=== PATIENT | female | born 1960 | race Caucasian/White ===

== ENCOUNTER → 2021-04-27 15:27 | Outpatient (BNVA) | payer BC, SELFPAY | PROVIDERS: PCP Internal Medicine; Visit Provider Hospitalist ==

== ENCOUNTER 2024-06-06 08:33 | Outpatient (AMB) | payer BC, SELFPAY ==
--- NOTE | 2024-06-06 08:52 | A.OFFPC_ITS ---
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 Has been out of blood pressure medication due to [facility] not filling them Marker Hand Required: No Allergies erythromycin base Allergy (Unknown, Verified 06/06/24 09:03) Unknown Medication List - Last Reconciled 06/06/24 by Vianney Szymanski PA-C albuterol sulfate 90 mcg/actuation inhalation ashwagandha root extract PO atorvastatin 10 mg PO DAILY biotin (Hair, Skin and Nails (biotin)) . 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 She is transferring from [facility]. She has a significant past medical history of hypertension, hyperlipidemia, prediabetes, seasonal allergies and asthma. -Trying to be healthier with acupuncture , red light therapy, and salt rooms. Trying to eat healthier. Not exercising. Trying to get up healthy boundaries with family members. CV: Blood pressure today in the office is elevated at 158/94. She is on irbesartan 300 mg daily and chlorthalidone 25 mg daily. Cholesterol is controlled with atorvastatin 10 mg. She states that she has been struggling with [facility] to refill her medications and schedule appointments so she has been out of her blood pressure medications for the last 3 weeks. She still has some atorvastatin at home. Two years ago she did have an echo and Holter which were overall reassuring other than intermittent PVCs and some bradycardia. She states that she purchased an EKG reader and has been monitoring her rhythm strips at home. She has been asymptomatic but has noticed that sometimes she is bradycardic in the 50s. She says when she saw Cardiology last year they told her that she did not need to follow up unless she develops any symptoms or anything changes. She just gets worried because she has a family history of AFib. PULM: Reports an asthma exacerbation in the last 2 days. She states that she [place] [employer] [place] and was sitting on hay which triggers her and then was sitting by a fire which also triggers her asthma. She is on Symbicort and montelukast. Uses albuterol as needed and recently has been using albuterol every 8 hours. Endo: Last A1c was 6.1. In the past she was on Trulicity. Tolerated this well and was able to lose weight. States that she was off of this because her insurance did not cover it. Derm: Requests a referral to Dermatology today. Her daughter was recently diagnosed with melanoma. She also reports a small, flesh-colored lump on her left lower leg. She states it has been there for years but recently feels a bit more rough and uncomfortable. She also has a mole on her back which she has a hard time seeing but it looks like it has changed colors. Mammogram: Up-to-date at [facility] Pap: Overdue Colonoscopy: Believes that she is due this year Bone density: Overdue [facility] Medical History (Updated 06/06/24 @ 10:06 by Vianney Szymanski PA-C) Prediabetes Obesity, Class II, BMI 35-39.9 Kidney stone HTN (hypertension) Hyperlipidemia Elevated glucose Bradycardia Anxiety and depression Anemia Allergy to nuts Allergic rhinitis Allergies Nasal polyps Asthma Surgical History (Updated 06/06/24 @ 09:17 by Heather Oviedo CMA) Hx of total knee replacement Hx of sinus surgery Family History (Updated 06/06/24 @ 09:21 by Heather Oviedo CMA) Father CAD (coronary artery disease) Alcoholism Hyperlipidemia HTN (hypertension) Kidney disease Liver disease Other Substance use Social History (Updated 04/27/21 @ 15:41 by PRASHANT Robles) Housing: House Patient Tobacco Use Status: Never used Tobacco e-Cigarette/Vaping Use: Never Used service: No Current occupational status: employed 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 1. Little interest or pleasure in doing things: not at all 2. Feeling down, depressed, or hopeless: not at all 3. Trouble falling or staying asleep, or sleeping too much: several days 4. Feeling tired or having little energy: not at all 5. Poor appetite or overeating: not at all 6. Feeling bad about yourself - or that you are a failure or have let yourself or your family down: not at all 7. Trouble concentrating on things, such as reading the newspaper or watching television: not at all 8. Moving or speaking so slowly that other people could have noticed. Or the opposite - being so fidgety or restless that you have been moving around a lot more than usual: not at all 9. Thoughts that you would be better off or of hurting yourself in some way: not at all Total score: 1 Depression Screening Interpretation: Negative Depression Screening Done: Yes 52264 - PHQ-9 Billing: Yes Source: Developed by Drs. Tony Goldstein, Estela Falk, Theo Levine and colleagues, with an educational nazia from [employer]. Thrive Questionnaire Date Thrive assessed: 06/06/24 I am a: Patient What is your living situation today?: I have a steady place to live Within the past 12 months, did the food you bought not last and you didn't have the money to get more?: Never true Within the past 12 months, did you worry whether your food would run out before you got money to buy more?: Never true Do you have trouble paying for medicines?: No Do you have trouble getting transportation to medical appointments?: No Do you have trouble paying your heating and electricity bill?: No Do you have trouble taking care of your child, family member or friend?: No Do you have trouble with day-to-day activities such as bathing, preparing meals, shopping, managing finances, etc.?: No Are you currently unemployed and looking for a job?: No Are you interested in more education?: No Please select the resources that you would like help with: None Currently or been in a relationship where the following occur: No concerns reported THRIVE Score: 0 AUDIT C Alcohol Use Questionnaire (AUDIT-C) 1. How often do you have a drink containing alcohol?: Monthly or less 2. How many drinks containing alcohol do you have on a typical day when you are drinking?: 1 or 2 3. How often do you have six or more drinks on one occasion?: Never Total Score: 1 DEVIN-7 AMB Questionnaire DEVIN-7 Date DEVIN - 7 assessed: 06/06/24 Feeling nervous, anxious, or on edge: 1 = Several days Not being able to stop or control worryin = Several days Worrying too much about different things: 1 = Several days Trouble relaxin = Several days Being so restless that it is hard to sit still: 0 = Not at all Becoming easily annoyed or irritable: 0 = Not at all Feeling afraid as if something awful might happen: 0 = Not at all Total DEVIN-7 score (0-4 normal; 5-9 mild; 10-14 moderate; 15-21 severe): 4 Source: Developed by Drs. Tony Goldstein, Estela Falk, Theo Levine and colleagues, with an educational nazia from [employer]. DEVIN-7 Assessment Billing DEVIN-7 Assessment Tool: DEVIN-7 Assessment [id number] Physical exam (Primary Care) Vital Signs: Last Vital Signs BP 158/94 H 06/06/24 09:06 BMI result Body Mass Index 40.8 Tobacco/Smoking Status: Tobacco use Status Tobacco use date assessed 06/06/24 06/06/24 09:00 Patient Tobacco Use Status Never used Tobacco 06/06/24 08:52 e-Cigarette/Vaping Use Never Used 06/06/24 09:00 PHQ-9: PHQ-9 Score PHQ-9: Total score 1 06/06/24 08:52 Depression Screening Interpretation: Negative Thrive Assessment: Date of Thrive Assessment Date Thrive assessed 05/30/24 06/06/24 08:52 Currently or been in a relationship where the following occur: No concerns reported Const Orientation/consciousness: patient oriented x3 HENMT Other: TMs dome-shaped a small air-fluid levels. No erythema. Nasal mucosa pale and boggy. Maxillary sinus is slightly tender to palpation. Ears: hearing grossly normal bilaterally Neck Thyroid: Thyroid normal Lymphatic: no lymphadenopathy noted Resp Effort & Inspection: normal respiratory effort and able to speak in complete sentences Auscultation: wheezes scattered wheezes Cardio Rate: regular rate Rhythm: regular rhythm Heart sounds: S1 normal heart sound present and S2 normal heart sound present GI Inspection: Yes normal to inspection Palpation (GI): Soft to palpation and Other GI palpation findings present (nontender, no cva tenderness) Auscultation: normoactive bowel sounds Rectal Exam - Female: deferred Skin Other: There is a small, approximately 3 mm x 3 mm flesh-colored raised lesion noted on the left posterior lower leg. There is a circular, hyperpigmented, flat, 5 mm x 5 mm lesion noted on the mid back with varying shades of hyperpigmentation. Neuro General: patient oriented x3, gait normal and no focal motor deficits Assessment and Plan Assessment & Plan (1) Asthma: Code(s): J45.909 - Unspecified asthma, uncomplicated Qualifiers: Asthma severity: moderate Asthma persistence: persistent Asthma complication type: with acute exacerbation Qualified Code(s): J45.41 - Moderate persistent asthma with (acute) exacerbation Plan: We will treat with a prednisone taper. Discussed risks and benefits and adverse effects of this medication. Warning signs of a an asthma exacerbation that would require emergent medical treatment were discussed. (2) Bradycardia: Code(s): R00.1 - Bradycardia, unspecified Plan: Heart rate WNL today. Monitors this at home with her watch and EKG reader. (3) Hyperlipidemia: Code(s): E78.5 - Hyperlipidemia, unspecified Plan: Continue atorvastatin. We will check lipids and LFTs today. (4) HTN (hypertension): Code(s): I10 - Essential (primary) hypertension Plan: Elevated above goal. Refilled blood pressure medications. Follow up in 1 month to have blood pressure rechecked. (5) Prediabetes: Code(s): R73.03 - Prediabetes Plan: A1c ordered today. (6) Skin lesion of left lower extremity: Code(s): L98.9 - Disorder of the skin and subcutaneous tissue, unspecified Plan: Referral to [facility] for the leg and back lesion. Referral was also printed and given to patient. She will let me know if she does not get an appointment in the next couple of weeks. Bone density ordered Referral to performance [facility]. Orders: Orders Comprehensive [place]. Panel Fast Today E78.5 - Hyperlipidemia, unspecified, I10 - Essential (primary) hypertension, J45.909 - Unspecified asthma, uncomplicated, R00.1 - Bradycardia, unspecified, R73.03 - Prediabetes XR DEXA axial skeleton Today Z13.820 - Encounter for screening for osteoporosis Complete Blood Count Auto Diff Today E78.5 - Hyperlipidemia, unspecified, I10 - Essential (primary) hypertension, J45.909 - Unspecified asthma, uncomplicated, R00.1 - Bradycardia, unspecified, R73.03 - Prediabetes B Type Natriuretic Peptide Today E78.5 - Hyperlipidemia, unspecified, I10 - Essential (primary) hypertension, J45.909 - Unspecified asthma, uncomplicated, R00.1 - Bradycardia, unspecified, R73.03 - Prediabetes Lipid Panel Today E78.5 - Hyperlipidemia, unspecified, I10 - Essential (primary) hypertension, J45.909 - Unspecified asthma, uncomplicated, R00.1 - Bradycardia, unspecified, R73.03 - Prediabetes TSH reflex Free T4 Today E78.5 - Hyperlipidemia, unspecified, I10 - Essential (primary) hypertension, J45.909 - Unspecified asthma, uncomplicated, R00.1 - Bradycardia, unspecified, R73.03 - Prediabetes Hemoglobin A1c Today E78.5 - Hyperlipidemia, unspecified, I10 - Essential (primary) hypertension, J45.909 - Unspecified asthma, uncomplicated, R00.1 - Bradycardia, unspecified, R73.03 - Prediabetes Vitamin B12 and Folate Today E78.5 - Hyperlipidemia, unspecified, I10 - Essential (primary) hypertension, J45.909 - Unspecified asthma, uncomplicated, R00.1 - Bradycardia, unspecified, R73.03 - Prediabetes 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 Z01.419 - Encounter for gynecological examination (general) (routine) without abnormal findings Open Access Screening Colonoscopy Referral Z12.11 - Encounter for screening for malignant neoplasm of colon, Z12.12 - Encounter for screening for malignant neoplasm of rectum Dermatology Referral L98.9 - Disorder of the skin and subcutaneous tissue, unspecified Medications: New montelukast 10 mg PO DAILY 90 tabs 3RF chlorthalidone 25 mg PO DAILY 90 tabs 3RF prednisone take 3 tab po x 3 days, take 2 tab po x 3 days, 1 tab po x 3 days 18 tabs 0RF irbesartan 300 mg PO DAILY 90 tabs 3RF atorvastatin 10 mg PO DAILY 90 tabs 3RF Changed From albuterol sulfate 90 mcg/actuation inhalation To albuterol sulfate 90 mcg/actuation 2 puffs inhalation Q6-8H 8.5 grams 3RF Refilled Symbicort 160-4.5 mcg/actuation (budesonide-formoterol) 2 puffs inhalation BID 30 days 10.2 grams 11RF NS J44.9 - Chronic obstructive pulmonary disease, unspecified Coding Level of Care Code Est Pt Level 4 (84121) Complex EM visit Add On G2211 Diagnoses Moderate persistent asthma with acute exacerbation J45.41 Asthma severity: moderate Asthma persistence: persistent Asthma complication type: with acute exacerbation Bradycardia R00.1 Hyperlipidemia E78.5 HTN (hypertension) I10 Prediabetes R73.03 Skin lesion of left lower extremity L98.9 Additional Codes DEVIN-7 Assessment Billing - DEVIN-7 Assessment Tool: DEVIN-7 Assessment [id number] ([id number])
[2024-06-06 09:06] VITALS: BP 158/94; BMI 40.8
[2024-06-06 09:22] VITALS: BP 148/96
== END 2024-06-06 09:57 | disposition home or self-care (01) ==
PROVIDERS: PCP Internal Medicine; Visit Provider Physician Assistant
DX: J45.41 Moderate persistent asthma with (acute) exacerbation (principal); R00.1 Bradycardia, unspecified; E78.5 Hyperlipidemia, unspecified; I10 Essential (primary) hypertension; R73.03 Prediabetes; L98.9 Disorder of the skin and subcutaneous tissue, unspecified

== ENCOUNTER → 2024-06-06 08:33 | Outpatient (BNVA) | payer BC, SELFPAY | PROVIDERS: PCP Internal Medicine; Visit Provider Physician Assistant | DX: J45.41 Moderate persistent asthma with (acute) exacerbation (principal); R00.1 Bradycardia, unspecified; E78.5 Hyperlipidemia, unspecified; I10 Essential (primary) hypertension; R73.03 Prediabetes; L98.9 Disorder of the skin and subcutaneous tissue, unspecified; Z79.899 Other long term (current) drug therapy | CPT/HCPCS: 96127 ==

== ENCOUNTER 2024-06-06 10:35 | Outpatient (REF) | payer OTHER, SELFPAY ==
[2024-06-06 12:47] LABS: MANUAL DIFF FLAG NO
[2024-06-06 13:06] LABS: Basophils Absolute Auto 0.1 X10*3/uL (0.0-0.2); Basophils Percent Auto 1.4 % (0-2); Eosinophils Absolute Auto 0.6 X10*3/uL (0.0-0.4); Hematocrit 38.9 % (37.0-47.0); Imm Gran Abs Auto 0.01 X10*3/uL (0.00-0.03); Imm Gran Pct Auto 0.3 % (0.0-0.4); Lymphocytes Absolute Auto 1.4 X10*3/uL (1.2-4.9); Lymphocytes Percent Auto 36.8 % (20-40); Mean Corpuscular HGB Conc 33.4 g/dl (31.0-35.0); Mean Corpuscular Hemoglobin 29.4 pg (27.0-33.0); Mean Platelet Volume 10.1 fL (9.4-12.3); Monocytes Absolute Auto 0.4 X10*3/uL (0.1-1.2); Monocytes Percent Auto 10.4 % (2-11); Neutrophils Absolute Auto 1.3 x10*3/uL (2.0-8.3); Neutrophils Percent Auto 36.1 % (45-73); Platelet Count 243 X10*3/uL (160-400); Red Blood Count 4.42 X10*6/uL (4.20-5.50); Red Cell Distribution Width 13.9 % (11.0-16.0); White Blood Count 3.7 X10*3/uL (4.8-10.8)
[2024-06-06 13:11] LABS: Alanine Aminotransferase 21 U/L (0-31); Albumin Level 4.3 g/dL (3.5-5.0); Alkaline Phosphatase 68 U/L (39-117); Anion Gap 12 (12-20); Aspartate Amino Transferase 18 U/L (5-31); Bilirubin Total 0.6 mg/dL (0.0-1.0); Blood Urea Nitrogen 13 mg/dL (9-16); Calcium 9.9 mg/dL (8.4-10.2); Carbon Dioxide 33 mmol/L (22-29); Chloride 102 mmol/L (96-108); Cholesterol 234 mg/dL (<200); Estimated Glomerular Filt Rate > 60; Glucose Fasting 92 mg/dL (60-99); HDL Cholesterol 55 mg/dL (>40); LDL Cholesterol Calculated 169 mg/dL (<100); Potassium 3.8 mmol/L (3.3-5.1); Sodium 143 mmol/L (135-145); Total Protein 7.2 g/dL (6.5-8.0); Triglycerides 53 mg/dL (<150)
[2024-06-06 13:22] LABS: B Type Natriuretic Peptide 28 pg/mL (<100)
[2024-06-06 13:26] LABS: TSH reflex Free T4 1.56 uIU/mL (0.32-4.0)
[2024-06-06 13:32] LABS: Folate 16.2 ng/mL (> or = 4.0); Vitamin B12 1094 pg/mL (200-900)
[2024-06-06 15:41] LABS: Estimated Average Glucose 111 mg/dL; Hemoglobin A1c % 5.5 % (<6.0); Total Hemoglobin (HGBA1C) 3302.6637 umol/L
== END 2024-06-06 10:36 | disposition home or self-care (01) ==
LOC: HO.WFDLDS 10:35
PROVIDERS: Visit Provider Physician Assistant
DX: R73.03 Prediabetes (principal); I10 Essential (primary) hypertension; E78.5 Hyperlipidemia, unspecified; R00.1 Bradycardia, unspecified; J45.909 Unspecified asthma, uncomplicated
CPT/HCPCS: 36415; 80053; 80061; 82607; 82746; 83036; 83880; 84443; 85025

== ENCOUNTER 2024-07-18 14:16 | Outpatient (AMB) | payer OTHER, SELFPAY ==
--- NOTE | 2024-07-18 14:29 | A.OFFPC_ITS ---
Vital Signs 07/18/24 14:30 Height 5 ft 4.21 in Weight 241 lb BMI 41.1 BP 138/86 Blood Pressure Location Rt brachial Position Sitting Pulse 51 Pulse Source Pulse Oximeter Pulse Oximetry (%) 97 Oxygen Delivery Method Room Air Intake Visit Reasons: fu htn Intake Note: Follow up htn Allergies erythromycin base Allergy (Unknown, Verified 07/18/24 14:29) Unknown Tobacco use date assessed: 06/06/24 Dental Screening Dental Screen Date: 06/06/24 HPI fu htn HPI Details Patient is a 63-year-old female who presents today to [facility]. She is transferring from [facility]. She has a significant past medical history of hypertension, hyperlipidemia, prediabetes, seasonal allergies and asthma. -Trying to be healthier with acupuncture , red light therapy, and salt rooms. Trying to eat healthier. Not exercising. Trying to get up healthy boundaries with family members. CV: Blood pressure today in the office is elevated at 138/86. She is on irbesartan 300 mg daily and chlorthalidone 25 mg daily. Cholesterol is controlled with atorvastatin 10 mg. Last lipids were elevated but she was off of this medication. She was restarted. She says that she really does not like the idea of taking another antihypertensive and would like to work on diet and weight loss. PULM: Reports asthma currently under good control. She is on Symbicort and montelukast. Uses albuterol as needed. Endo: Last A1c was 5.5. Derm: She is following with dermatology. Mammogram: Up-to-date at [facility] [place] [facility] [place]: Believes that she is due this year Bone density: Overdue- booked [facility] Medical History (Updated 06/08/24 @ 11:19 by Vianney Szymanski PA-C) Prediabetes Obesity, Class II, BMI 35-39.9 Kidney stone HTN (hypertension) Hyperlipidemia Elevated glucose Bradycardia Anxiety and depression Anemia Allergy to nuts Allergic rhinitis Allergies Nasal polyps Asthma Surgical History (Updated 07/18/24 @ 14:34 by Heather Oviedo CMA) History of removal of skin mole Hx of total knee replacement Hx of sinus surgery Family History Father CAD (coronary artery disease) Alcoholism Hyperlipidemia HTN (hypertension) Kidney disease Liver disease Other Substance use Social History (Updated 06/06/24 @ 09:29 by NATI Ramachandran Housing: House Alcohol intake: never Patient Tobacco Use Status: Never used Tobacco e-Cigarette/Vaping Use: Never Used service: No Current occupational status: employed 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 Current occupational exposures/hazards: No Cognitive needs: No Hearing needs: No Vision needs: No Questionnaire Thrive Questionnaire Date Thrive assessed: 05/30/24 I am a: Patient What is your living situation today?: I have a steady place to live Within the past 12 months, did the food you bought not last and you didn't have the money to get more?: Never true Within the past 12 months, did you worry whether your food would run out before you got money to buy more?: Never true Do you have trouble paying for medicines?: No Do you have trouble getting transportation to medical appointments?: No Do you have trouble paying your heating and electricity bill?: No Do you have trouble taking care of your child, family member or friend?: No Do you have trouble with day-to-day activities such as bathing, preparing meals, shopping, managing finances, etc.?: No Are you currently unemployed and looking for a job?: No Are you interested in more education?: No Please select the resources that you would like help with: None Currently or been in a relationship where the following occur: No concerns reported THRIVE Score: 0 AUDIT C Alcohol Use Questionnaire (AUDIT-C) 1. How often do you have a drink containing alcohol?: Never 3. How often do you have six or more drinks on one occasion?: Never Total Score: 0 DEVIN-7 AMB Questionnaire DEVIN-7 Date DEVIN - 7 assessed: 06/06/24 Source: Developed by Drs. Tony Goldstein, Estela Falk, Theo Levine and colleagues, with an educational nazia from [employer]. Physical exam (Primary Care) Vital Signs: Last Vital Signs Pulse 51 07/18/24 14:30 BP 138/86 07/18/24 14:30 Pulse Ox 97 07/18/24 14:30 Oxygen Delivery Method Room Air 07/18/24 14:30 BMI result Body Mass Index 41.1 Tobacco/Smoking Status: Tobacco use Status Tobacco use date assessed 06/06/24 06/06/24 09:00 Patient Tobacco Use Status Never used Tobacco 06/06/24 09:29 e-Cigarette/Vaping Use Never Used 06/06/24 09:29 Thrive Assessment: Date of Thrive Assessment Date Thrive assessed 05/30/24 07/05/24 09:04 Currently or been in a relationship where the following occur: No concerns reported Const Orientation/consciousness: patient oriented x3 HENMT Ears: hearing grossly normal bilaterally Neck Thyroid: Thyroid normal Lymphatic: no lymphadenopathy noted Resp Auscultation: clear to auscultation bilaterally Cardio Rate: regular rate Rhythm: regular rhythm Heart sounds: S1 normal heart sound present and S2 normal heart sound present GI Inspection: Yes normal to inspection Palpation (GI): Soft to palpation and Other GI palpation findings present (nontender, no cva tenderness) Auscultation: normoactive bowel sounds Rectal Exam - Female: deferred Skin General skin exam: no rashes or lesions noted Neuro General: patient oriented x3, gait normal and no focal motor deficits Results Reviewed Results Reviewed: Laboratory Tests 06/06/24 10:37 WBC 3.7 L RBC 4.42 Hgb 13.0 Hct 38.9 Plt Count 243 Sodium 143 Potassium 3.8 Chloride 102 Carbon Dioxide 33 H Anion Gap 12 BUN 13 Creatinine 0.87 Estimated GFR > 60 Fasting Glucose 92 Hemoglobin A1c % 5.5 AST 18 ALT 21 Alkaline Phosphatase 68 B-Natriuretic Peptide 28 Total Protein 7.2 Albumin 4.3 Triglycerides 53 Cholesterol 234 H LDL Cholesterol, Calc 169 H HDL Cholesterol 55 TSH 1.56 Coding Level of Care Code Est Pt Level 4 (49446) Complex EM visit Add On G2211 Diagnoses Hyperlipidemia E78.5 HTN (hypertension) I10 Assessment & Plan Assessment & Plan (1) Hyperlipidemia: Code(s): E78.5 - Hyperlipidemia, unspecified Category: Medical Plan: Restarted on atorvastatin. Tolerating well. We will recheck lipids and LFTs in a few months. (2) HTN (hypertension): Code(s): I10 - Essential (primary) hypertension Category: Medical Plan: She wants to work on diet and weight loss. Continue with the for irbesartan and chlorthalidone. Follow up in 3 months. Sooner if needed. Patient understands and agrees with the plan.
[2024-07-18 14:30] VITALS: BP 138/86; PULSE 51; O2SAT 97; BMI 41.1
== END 2024-07-18 15:01 | disposition home or self-care (01) ==
LOC: HO.HMCFM 14:16
PROVIDERS: PCP Physician Assistant; Visit Provider Physician Assistant
DX: E78.5 Hyperlipidemia, unspecified (principal); I10 Essential (primary) hypertension

== ENCOUNTER 2024-10-18 10:53 | Outpatient (AMB) | payer BC, SELFPAY ==
--- NOTE | 2024-10-18 10:53 | MHC.PC.OV ---
Intake Visit Reasons: htn (get ins) Intake Note: Follow up hypertension. Blood pressure yesterday was 132/72. 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 She has a significant past medical history of hypertension, hyperlipidemia, prediabetes, seasonal allergies and asthma. -Trying to be healthier with acupuncture, red light therapy, and salt rooms. Trying to eat healthier. Not exercising. Trying to get up healthy boundaries with family members. CV: Blood pressures have been better controlled since switching from irbesartan to lostartan. bps are about 120/70. She is on losartan 50 mg daily and chlorthalidone 25 mg daily. Cholesterol is controlled with atorvastatin 10 mg. PULM: Reports asthma currently under good control. She is on Symbicort and montelukast. Uses albuterol as needed. Endo: Last A1c was 5.5. Derm: She is following with dermatology. Musculoskeletal: Dr. Love did surgery on 09/06 for broken right ankle done on 09/04. She is overdue for bone density and states she had to rebook this due to not being able to drive. Has a follow up with surgeon next week. Mammogram: Up-to[place]date at [facility] [place]: [place] [facility] [place]: Believes that she is due this year but has not heard Bone density: Overdue- booked [facility] Medical History (Updated 06/08/24 @ 11:19 by Vianney Szymanski PA-C) Prediabetes Obesity, Class II, BMI 35-39.9 Kidney stone HTN (hypertension) Hyperlipidemia Elevated glucose Bradycardia Anxiety and depression Anemia Allergy to nuts Allergic rhinitis Allergies Nasal polyps Asthma Surgical History History of removal of skin mole Hx of total knee replacement Hx of sinus surgery Family History Father CAD (coronary artery disease) Alcoholism Hyperlipidemia HTN (hypertension) Kidney disease Liver disease Other Substance use Social History (Updated 10/18/24 @ 11:02 by Heather Oviedo CMA) Housing: House Alcohol intake: never Patient Tobacco Use Status: Never used Tobacco e-Cigarette/Vaping Use: Never Used Use of substances other than those prescribed or required for medical reasons: No service: No Current occupational status: employed 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 Tony Goldstein, Estela Fakl, Theo Levine and colleagues, with an educational nazia from [employer]. Physical exam (Primary Care) Tobacco/Smoking Status: Tobacco use Status Tobacco use date assessed 06/06/24 10/18/24 11:02 Patient Tobacco Use Status Never used Tobacco 10/18/24 11:02 e-Cigarette/Vaping Use Never Used 10/18/24 11:02 Thrive Assessment: Date of Thrive Assessment Date Thrive assessed 05/30/24 10/18/24 11:02 Telehealth Telehealth Telehealth Platform: Telephone Location of provider rendering services: practice address Location of patient: address on file Patient Identification confirmed using: Name, : Yes Telehealth method: voice only Patient verbally consented to treatment: Yes Patient verbally consented to billing insurance company: Yes Patient informed of any privacy concerns related to visit: Yes Minutes spent on Phone/Video with Pt.: 21 Coding Level of Care Code Tele Est Pt Level 3 (56207) Diagnoses Hyperlipidemia E78.5 HTN (hypertension) I10 Prediabetes R73.03 Assessment & Plan Assessment & Plan (1) Hyperlipidemia: Code(s): E78.5 - Hyperlipidemia, unspecified Category: Medical Plan: continue lipitor. advised to complete labs. lipids and lfts are ordered (2) HTN (hypertension): Code(s): I10 - Essential (primary) hypertension Category: Medical Plan: reports wnl continue current plan (3) Prediabetes: Code(s): R73.03 - Prediabetes Category: Medical Plan: labs and a1c ordered Orders: Orders Comprehensive [place]. Panel Fast Today E78.5 - Hyperlipidemia, unspecified, I10 - Essential (primary) hypertension, R73.03 - Prediabetes TSH reflex Free T4 Today E78.5 - Hyperlipidemia, unspecified, I10 - Essential (primary) hypertension, R73.03 - Prediabetes Complete Blood Count Auto Diff Today E78.5 - Hyperlipidemia, unspecified, I10 - Essential (primary) hypertension, R73.03 - Prediabetes Hemoglobin A1c Today R73.01 - Impaired fasting glucose Lipid Panel Today E78.5 - Hyperlipidemia, unspecified, I10 - Essential (primary) hypertension, R73.03 - Prediabetes UA CC w/rflx Micro + Cult Today E78.5 - Hyperlipidemia, unspecified, I10 - Essential (primary) hypertension, R73.03 - Prediabetes, Z13.220 - Encounter for screening for lipoid disorders
--- OUTSIDE RECORDS SUMMARY | 2024-10-18 10:55 | XMS_ITS | Clinical Summary ---
Author Organization Formerly [facility] Address [address] [place] [address] Care Team Providers Care Motor Rebuilder Name Role Phone Vianney Szymanski PA-C Primary Care Provider [phone] Allergies No known active allergies Medications Medication Sig Dispensed Refills Start Date End Date Status IRBESARTAN PO Take by mouth. 0 Active montelukast (SINGULAIR) 10 MG tablet Take 1 tablet (10 mg total) by mouth every night at bedtime. 0 Active atorvastatin (LIPITOR) tablet 10 mg Take by mouth every evening. 0 Active fluticasone-salmeterol (Advair Diskus) 250-50 MCG/ACT AEPB Inhale into the lungs. 0 Active albuterol 108 (90 Base) MCG/ACT inhaler Inhale 2 puffs into the lungs every 6 (six) hours as needed for wheezing. 0 Active chlorthalidone (HYGROTON) 25 MG tablet Take 1 tablet (25 mg total) by mouth daily. 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 Social History Tobacco Use Types Packs/Day Years Used Date Smoking Tobacco: Never Assessed Sex and Gender Information Value Date Recorded Sex Assigned at Female 08/23/2022 2:03 PM EST Gender Identity Not on file Sexual Orientation Not on file Job Start Date Occupation Industry Not on file Not on file Not on file Last Filed Vital Signs Vital Sign Reading Time Taken Comments Blood Pressure 140/70 12/15/2022 3:00 PM EDT Pulse 80 12/15/2022 3:00 PM EDT Temperature 36.9 ??C (98.4 ??F) 12/15/2022 3:00 PM ED T Respiratory Rate - - Oxygen Saturation 97% 12/15/2022 3:00 PM EDT Inhaled Oxygen Concentration - - Weight 107.5 kg (237 lb) 12/15/2022 3:00 PM EDT Height 167.6 cm (5' 6 ) 12/15/2022 3:00 PM EDT Body Mass Index 38.25 12/15/2022 3:00 PM EDT Plan of Treatment Health Maintenance Due Date Last Done Comments Hepatitis C Screening 1961 COVID-19 Vaccine (#1) 1966 Depression Screening 1973 Preventative Health Evaluation 12/04/1979 Shingrix-Zoster Vaccine (1 o f 2) 1980 Cervical Cancer Screening (Pap Smear) 1982 Colon Cancer Screening (Colonoscopy) 2006 Breast Cancer Screening (Mammogram) 12/04/2011 DTap / Tdap / Td (1 - Tdap) 02/03/2012 02/02/2012 Pneumococcal Vaccine (3 of 3 - PPSV23 or PCV20) 03/02/2017 01/05/2017, 02/03/2011 RSV Adult > 60+ Yrs or (1 - Risk 60-74 years 1-dose series) 2021 Influenza Vaccine (#1) 2024 07/12/2022 Hepatitis B Vaccines Aged Out No long er eligible based on patient's age to complete this topic RSV Ped < 20 months Aged Out No longe r eligible based on patient's age to complete this topic Care Teams Motor Rebuilder Relationship Specialty Start Date End Date Vianney Szymanski PADmC PCP - General Physician Recreation Aide 08/23/22
--- OUTSIDE RECORDS SUMMARY | 2024-10-18 10:55 | XMS_ITS | Continuity of Care Document ---
Author Organization [facility] ter Address [address] [place] [id number] Care Team Providers Care Medical Malpractice Paralegal Name Role Phone Vianney Samuels Primary Care Physician [phone] Encounter [facility] [place] Date(s): 09/14/24 - 10/14/[address] [address]- Attending Physician: Not on Staff, Attending MD Admitting Physician: Not on Staff, Admitting MD Referring Physician: Not on Staff, Referring MD Encounter Type: Pre-Outpt Allergies, Adverse Reactions, Alerts Substance Criticality Severity Reaction Reaction Severity Status erythromycin <not entered> Dyspepsia Act alvarez lisinopril <not entered> Activ e Peanuts Active Immunizations Given and Recorded Vaccine Date Status Refusal Reason SARS-CoV-2 (COVID-19) mRNA BNT-162b2 vac 12/05/20 Recorded SARS-CoV-2 (COVID-19) mRNA BNT-162b2 vac 11/14/20 Recorded influenza virus vaccine, inactivated 06/05/20 Theo rded influenza virus vaccine, inactivated 06/21/19 Theo rded influenza virus vaccine, inactivated 06/22/18 Theo rded influenza virus vaccine, inactivated 06/23/17 Theo rded influenza virus vaccine, inactivated 06/19/15 Theo rded influenza virus vaccine, inactivated 07/18/14 Theo rded zoster vaccine, inactivated 03/31/18 Recorded zoster vaccine, inactivated 01/12/18 Recorded pneumococcal 13-valent vaccine 1 01/05/17 Recorded pneumococcal 13-valent vaccine 01/05/17 Recorded tetanus-diphtheria toxoids (Td) 2 02/02/12 Recorde d diphtheria/tetanus/pertussis, acel(DTaP) 02/02/12 Recorded pneumococcal 23-valent vaccine 02/03/11 Recorded 1Result 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 Refills 3, Maintenance, 08/23/22 11:03:00 AM EST, Inhaler, Route to Pharmacy Electronically, [id number], [facility], 167.6, cm, 06/25/22 15:48:00 EDT, Height, 102, kg, 06/19/21 12:49:00 EDT, Dry Weight Start Date: 08/23/22 Status: Ordered Quantity: 3.0 Unit: each Repeat number: 4 albuterol 90 mcg/inh inhalation powder 2 puffs, Inhalation, Once, as directed 15 minutes before exercise, # 1 each, 5 Refills, Soft Stop, 05/02/24 3:23:00 PM EDT, Powder, [facility], 2 puffs Inhalation Once,Instr:as directed 15 minutes before exercise, 168, cm, 12/07/22 13:29:00 EDT, Height, 105, kg, 11/12/22 14:16:00 EST, DryWeight Start Date: 05/02/24 Status: Ordered Quantity: 1.0 Unit: each Repeat number: 6 aspirin 81 mg oral delayed release tablet 81 mg, 1, tablet, By Mouth, 2 times a day, # 60 tablet, Refills 0, Tot. Refills 0, Maintenance, 09/14/24 9:05:00 AM EST, Route to Pharmacy Electronically, [facility], Partial fill upon patient request if the prescription is for a schedule II opioid drug., 168, cm, 09/14/24 7:12:00 EST, Height, 109, kg, 09/06/24 14:49:00 EST, Dry Weight Start Date: 09/14/24 Stop Date: 10/14/24 Status: Ordered Quantity: 60.0 Unit: tablet Repeat number: 1 atorvastatin 10 mg oral tablet 1 tablet, By Mouth, Daily, # 30 tablet, 0 Refills, Maintenance, 03/23/24 4:57:00 PM EDT, [facility], 168, cm, 12/07/22 13:29:00 EDT, Height, 105, kg, 11/12/22 14:16:00 EST, Dry Weight Start Date: 03/23/24 Status: Ordered Quantity: 30.0 Unit: tablet Repeat number: 1 buPROPion 100 mg/12 hours (SR) oral tablet, extended release 1 tablet, By Mouth, 2 times a day, # 180 tablet, 0 Refills, Maintenance, 06/07/24 10:11:00 AM EDT, [facility], 168, cm, 12/07/22 13:29:00 EDT, Height, 105, kg, 11/12/22 14:16:00 EST, Dry Weight Start Date: 06/07/24 Status: Ordered Quantity: 180.0 Unit: tablet Repeat number: 1 chlorthalidone 25 mg oral tablet 1, tablet, By Mouth, Daily, # 30 tablet, Refills 0, Tot. Refills 0, Maintenance, 03/14/24 6:51:00 AM EDT, Route to Pharmacy Electronically, [facility], 168, cm, 12/07/22 13:29:00 EDT, Height, 105, kg, 11/12/22 14:16:00 EST, Dry Weight Start Date: 03/14/24 Status: Ordered Quantity: 30.0 Unit: tablet Repeat number: 1 docusate sodium 100 mg oral capsule 1 capsule = 100 mg, By Mouth, 2 times a day, # 20 capsule, 0 Refills, Maintenance, 09/14/24 9:04:00 AM EST, Capsule, [facility], Partial fill upon patient request if the prescription is for a schedule II opioid drug., 168, cm, 09/14/24 7:12:00 EST, Height, 109, kg, 09/06/24 14:49:00 EST, Dry Weight Start Date: 09/14/24 Stop Date: 09/24/24 Status: Ordered Quantity: 20.0 Unit: capsule Repeat number: 1 irbesartan 300 mg oral tablet 1 tablet, By Mouth, Daily, # 30 tablet, 0 Refills, Maintenance, 03/23/24 4:58:00 PM EDT, [facility], 168, cm, 12/07/22 13:29:00 EDT, Height, 105, kg, 11/12/22 14:16:00 EST, Dry Weight Start Date: 03/23/24 Status: Ordered Quantity: 30.0 Unit: tablet Repeat number: 1 montelukast 10 mg oral tablet 1, tablet, By Mouth, Daily, # 90 tablet, Refills 0, Tot. Refills 0, Maintenance, 07/01/24 12:51:00 AM EDT, Route to Pharmacy Electronically, [facility], 168, cm, 12/07/22 13:29:00 EDT, Height, 105, kg, 11/12/22 14:16:00 EST, Dry Weight Start Date: 07/01/24 Stop Date: 09/29/24 Status: Ordered Quantity: 90.0 Unit: tablet Repeat number: 1 predniSONE 20 mg oral tablet Taper dose starting with TID x3 days, BID x3 days, daily x3 days, 0 Refills, Maintenance, 09/04/24 1:49:00 PM EST, Partial fill upon patient request if the prescription is for a schedule II opioid drug. Start Date: 09/04/24 Status: Ordered Repeat number: 1 tiZANidine 4 mg oral tablet 4 mg, By Mouth, 3 times a day, PRN, Muscle Spasma, # 10 tablet, Refills 0, Tot. Refills 0, Maintenance, Other, 09/14/24 10:36:00 AM EST, Route to Pharmacy Electronically, [facility], Partial fill upon patient request if the prescription is for a schedule II opioid drug., 168, cm, 09/14/24 7:12:00 EST, Height, 109, kg, 09/06/24 14:49:00 EST, Dry Weight Start Date: 09/14/24 Status: Ordered Quantity: 10.0 Unit: tablet Repeat number: 1 Turmeric Oleoresin Turmeric Oleoresin, 2 tablets, By Mouth, Daily, Refills 0, Maintenance, 09/04/24 3:31:00 PM EST, Supply Start Date: 09/04/24 Status: Ordered Repeat number: 1 ZyrTEC 10 mg oral tablet 1 tablet = 10 mg, By Mouth, Daily, 0 Refills, Maintenance, 09/04/24 3:29:00 PM EST, Tablet, Partialfill upon patient request if the prescription is for a schedule II opioid drug. Start Date: 09/04/24 Status: Ordered Repeat number: 1 Problem List Condition Confirmation Course Effective Dates Status H ealth Status Informant Allergic rhinitis Confirmed Active Allergy to nut Confirmed Active Anemia Confirmed Active Asthma Confirmed Active Bradycardia Confirmed Active Syndesmotic disruption of right ankle Confirmed Active Hyperlipidemia Confirmed Active Hypertension Confirmed Active Elevated glucose Confirmed Active Kidney stone Confirmed Active Anxiety with depression Confirmed Active Nasal polyp Confirmed Active Prediabetes Confirmed Active Severe obesity (BMI 35.0-39.9) with comorbidity Confirmed Active Social History Social History Type Response Smoking Status Never (less than 100 in lifetime) entered on: 04/20/19 Sex Sex Representation Female (finding) Patient Care team information Care Team Personnel Name: Sho Astudillo RN Position: [facility] SN RN Member Role: Primary Care Nurse Name: Artie Maradiaga RN Position: S RN Member Role: Primary Care Nurse Name: Portia Tran RN Position: S RN Member Role: Primary Care Nurse Name: Val Barbosa RN Position: [facility] SN RN Member Role: Primary Care Nurse Name: Vianney Samuels Position: Reference Physician Member Role: PCP Address: [address] [place] [address] Telecom: Name: Natasha Segura RN Position: S RN Member Role: Primary Care Nurse Name: Scott Ceja RN Position: S RN Member Role: Primary Care Nurse Name: Victor M Berrios RN Position: S RN Member Role: Primary Care Nurse Name: Annie Perla RN Position: S RN Member Role: Primary Care Nurse Care Team Related Persons Name: MANGO IBARRA Insurance Providers Guarantor name: [facility] Information #: 1 Payer: [employer] IN[employer] Member Number: NA Policy Number: NA Group Number: NA
== END 2024-10-18 14:35 | disposition home or self-care (01) ==
LOC: HO.HMCFM 10:53
PROVIDERS: PCP Physician Assistant; Visit Provider Physician Assistant
DX: E78.5 Hyperlipidemia, unspecified (principal); I10 Essential (primary) hypertension; R73.03 Prediabetes